=== PATIENT | male | born 1960 | race African-American/Black ===

== ENCOUNTER 2017-01-01 13:16 | Emergency (ER) | payer MEDICARE, OTHER ==
[2017-01-01 13:38] VITALS: BP 134/71
[2017-01-01 14:13] LABS: BASOPHILS % 0.3 (0.0-1.5); EOSINOPHILS % 2.3 % (0.0-6.8); MEAN CORPUSCULAR VOLUME 92.5 fl (80.0-100.0); MONOCYTES % 5.5 % (0.0-11.0); NEUTROPHILS # 3.4 # k/uL (1.4-7.7)
[2017-01-01 14:38] LABS: eGFR (African) > 60; eGFR (Non-African) > 60
[2017-01-01] MEDS ORDERED: METOPROLOL TARTRATE 50 MG TABLET PO ONE (18:20)
[2017-01-01] MEDS ORDERED: HALOPERIDOL LACTATE 5 MG/ML VIAL IM ONE ×2 (18:57→19:00)
[2017-01-01] MEDS ORDERED: LORazepam 1 MG TABLET PO ONE (20:30)
[2017-01-01] MEDS ORDERED: QUEtiapine FUMARATE 25 MG TABLET PO ONE (20:30)
[2017-01-01] MEDS ORDERED: traZODone HCL 50 MG TABLET ONE (20:39)
[2017-01-01] MEDS ORDERED: traZODone HCL 50 MG TABLET PO SCH (21:00)
--- NOTE | 2017-01-02 08:36 | ED Physician Documentation ---
Suicidal Attempt - HISTORIAN Historian: patient, other (caregiver) - HPI Chief Complaint: Psychological Disorder Onset: days ago (2 days) Intent: suicide Situational Problems: No Further Comments: yes (Patient has been exhibiting some suicidal thoughts and ideation/attempts. No precipitating factors noted. Yesterday patient tried to hang himself with his ties and belt. Patient became aggrivated and was making threatening jestors to the staff but did not do anything physical to the staff or other residents. Patient has told the staff today that he was going to try to kill himself. Patient tried to take a knife from the kitchen and threatened to stab himself. Patient states that he does not like the place where he is living because they do not treat him nice. He is distraught about his aunt who several years ago. This is bothering him a lot.) - Associated Symptoms Symptoms: frustrated Ingestion: wanted to "escape" Mechanism: other (see above) - ROS CONST: denies: fever, chills - PAST HX Psychiatric problems: prior suicide attempt, schizophrenia (schizoeffective disorder), other (mild MR, depression, antisocial personality disorder) Lung, Cardiac, DM: hypertension (lt estopia, moderate dysarthria, DJD, allergic rhinnitis, extrapyramidal syndrome) Surgical History: other (right tibial plateau fracture) Immunizations: UTD Allergies/Adverse Reactions: Allergies Allergy/AdvReac Type Severity Reaction Status Date / Time No Known Allergies Allergy Verified 01/01/17 13:19 Home Medications: Ambulatory Orders Medication Instructions Recorded Acetaminophen [Tylenol] 650 mg PO Q6 PRN 01/01/17 Aspirin [Dina] 81 mg PO DAILY 01/01/17 Divalproex Sodium [Depakote] 4 tab PO QDAY 01/01/17 Haloperidol Decanoate [Haloperidol 300 mg IM WEEKLY AT 0600 01/01/17 Decanoate 100] Hydrochlorothiazide [Hydrodiuril] 25 mg PO DAILY 01/01/17 LORazepam [Ativan] 0.5 mg PO BID 01/01/17 LORazepam [Ativan] 1 mg PO [id number] 01/01/17 Lisinopril [Zestril] 40 mg PO QDAY 01/01/17 Lorazepam [Ativan] 1 mg PO Q6 PRN 01/01/17 Metoprolol Tartrate [Lopressor] 100 mg PO BID 01/01/17 Nifedipine [Procardia] 90 mg PO QDAY 01/01/17 Quetiapine Fumarate [Seroquel] 300 mg PO HS 01/01/17 Sertraline HCl [Zoloft] 50 mg PO DAILY 01/01/17 Trihexyphenidyl HCl 1 mg PO BID 01/01/17 [Trihexyphenidyl HCl] traZODone HCL [Desyrel] 200 mg PO HS 01/01/17 - Social HX Smoking History: non-smoker Marital Status: single Drug Use: none - Family HX Family HX: denies: mental illness (unknown) - VITAL SIGNS Vital Signs: Vital Signs Temp Pulse Resp BP Pulse Ox 98.2 F 68 18 134/71 93 01/01/17 13:20 01/01/17 13:20 01/01/17 13:20 01/01/17 13:20 01/01/17 13:20 - REVIEWED ASSESSMENTS Nursing Assessment Reviewed: Yes Vitals Reviewed: Yes Progress - Results/Orders Results/Orders: 15:32 Patient is cooperative and pleasant at this time. Voices no complaints. Patient' s gaurdian has given consent for him to be transfered to a psychiatric facility. 18:57 Patient has become aggitated when disabilities caregiver has returned. ED Results Lab/Radiology - Lab Results Lab Results: Lab Results 01/01/17 01/01/17 14:10 14:10 WBC 5.20 K/ul K/ul (4.00-12.00) RBC 3.85 M/ul L M/ul (3.90-5.20) Hgb 11.9 g/dL L g/dL (12.0-18.0) Hct 35.6 % L % (37.0-53.0) MCV 92.5 fl fl (80.0-100.0) MCH 31.0 pg pg (28.0-34.0) MCHC 33.5 g/dL g/dL (30.0-36.0) RDW 14.9 % H % (11.3-14.3) Plt Count 200 K/mm3 K/mm3 (130-400) Neut % (Auto) 65.4 % % (39.0-79.0) Lymph % (Auto) 25.4 % % (16.0-50.0) [place] % (Auto) 5.5 % % (0.0-11.0) Eos % (Auto) 2.3 % % (0.0-6.8) Baso % (Auto) 0.3 (0.0-1.5) Neut # 3.4 # k/uL # k/uL (1.4-7.7) Lymph # 1.3 # k/uL # k/uL (0.6-4.0) [place] # 0.3 # k/uL # k/uL (0.0-0.9) Eos # 0.1 # k/uL # k/uL (0.0-0.6) Baso # 0.0 # k/uL # k/uL (0.0-0.5) Reactive Lymphs % 1.2 % % (0.0-5.0) Reactive Lymphs # 0.1 # k/uL # k/uL (0.0-0.8) Sodium 140 mmol/L mmol/L (136-145) Potassium 3.9 mmol/L mmol/L (3.5-5.0) Chloride 98 mmol/L mmol/L (98-110) Carbon Dioxide 34 mmol/L H mmol/L (20-32) BUN 14 mg/dL mg/dL (10-26) Creatinine 1.0 mg/dL mg/dL (0.4-1.5) Estimated Creat Clear 104 Est GFR ( Amer) > 60 (60 - ) Est GFR (Non-Af Amer) > 60 (60 - ) Glucose 99 mg/dL mg/dL (70-99) Calcium 9.2 mg/dL mg/dL (8.5-10.5) Total Bilirubin 0.3 mg/dL mg/dL (0.2-1.2) AST 15 U/L U/L (0-41) ALT 6 U/L U/L (0-45) Alkaline Phosphatase 84 U/L U/L (46-116) Total Protein 6.9 g/dL g/dL (6.0-8.5) Albumin 3.8 g/dL g/dL (3.0-5.5) - Orders Orders: ED Orders Category Date Time Status CBC/PLATELET/DIFF Routine Lab 01/01/17 14:10 Completed CMP Routine Lab 01/01/17 14:10 Completed URINALYSIS Routine Lab 01/01/17 Uncollected Haloperidol Lactate [Haldol] Med 01/01/17 18:57 Discontinued 5 mg IM .STK-MED ONE Haloperidol Lactate [Haldol] Med 01/01/17 19:00 Once 5 mg IM NOW ONE Metoprolol Tartrate [Lopressor] Med 01/01/17 18:20 Discontinued 100 mg PO NOW ONE Suicide Physical Exam - Physical Exam General Appearance: no acute distress, alert ENT: nml ENT inspection, pharynx nml Eyes: PERRL, EOM's intact, other (estropia) Mental Status: tearful, suicidal ideation, depressed affect / mood Suicide Attempts: admit Orientation: nml x3 (at baseline for patient) Cranial Nerves: CN's intact as tested Sensory, Motor: nml motor response Neck/Back: normal inspection Respiratory: no resp distress CVS: reg rate & rhythm Abdomen: non-tender Skin: warm/dry Extremities: non-tender Discharge Clincal Impression: Suicide Depression Qualifiers: Depression Type: major depressive disorder Major depression recurrence: single episode Active/Remission status: currently active Major depression episode severity: moderate Qualified Code(s): F32.1 - Major depressive disorder, single episode, moderate Referrals: Primary Doctor,No [Primary Care Provider] - 2 Days Home Medications: Ambulatory Orders Acetaminophen [Tylenol] 650 mg PO Q6 PRN 01/01/17 Aspirin [Dina] 81 mg PO DAILY 01/01/17 Divalproex Sodium [Depakote] 4 tab PO QDAY 01/01/17 Haloperidol Decanoate [Haloperidol Decanoate 100] 300 mg IM WEEKLY AT 0600 01/01 Hydrochlorothiazide [Hydrodiuril] 25 mg PO DAILY 01/01/17 LORazepam [Ativan] 0.5 mg PO BID 01/01/17 LORazepam [Ativan] 1 mg PO [id number] 01/01/17 Lisinopril [Zestril] 40 mg PO QDAY 01/01/17 Lorazepam [Ativan] 1 mg PO Q6 PRN 01/01/17 Metoprolol Tartrate [Lopressor] 100 mg PO BID 01/01/17 Nifedipine [Procardia] 90 mg PO QDAY 01/01/17 Quetiapine Fumarate [Seroquel] 300 mg PO HS 01/01/17 Sertraline HCl [Zoloft] 50 mg PO DAILY 01/01/17 Trihexyphenidyl HCl [Trihexyphenidyl HCl] 1 mg PO BID 01/01/17 traZODone HCL [Desyrel] 200 mg PO HS 01/01/17 Decision to Admit: [id number] Date of Decison to Admit: 01/01/17 Decision Time: 16:00
== END 2017-01-01 21:15 ==
LOC: ED 13:16
DX: T14.91 Suicide attempt (principal); F32.9 Major depressive disorder, single episode, unspecified
CPT/HCPCS: 80053; 85025; J1630; 96374; 96376; 99283; 99284

== ENCOUNTER 2017-02-05 17:11 | Emergency (ER) | payer MEDICARE, OTHER ==
--- NOTE | 2017-02-05 17:32 | ED Physician Documentation ---
Hand Injury - HISTORIAN Historian: patient - PAST HX Allergies/Adverse Reactions: Allergies Allergy/AdvReac Type Severity Reaction Status Date / Time No Known Allergies Allergy Verified 01/01/17 13:19 Home Medications: Ambulatory Orders Medication Instructions Recorded Acetaminophen [Tylenol] 650 mg PO Q6 PRN 01/01/17 Aspirin [Dina] 81 mg PO DAILY 01/01/17 Divalproex Sodium [Depakote] 4 tab PO QDAY 01/01/17 Haloperidol Decanoate [Haloperidol [address] [place] [address]/01/17 Decanoate 100] Hydrochlorothiazide [Hydrodiuril] 25 mg PO DAILY 01/01/17 LORazepam [Ativan] 0.5 mg PO BID 01/01/17 LORazepam [Ativan] 1 mg PO [id number] 01/01/17 Lisinopril [Zestril] 40 mg PO QDAY 01/01/17 Lorazepam [Ativan] 1 mg PO Q6 PRN 01/01/17 Metoprolol Tartrate [Lopressor] 100 mg PO BID 01/01/17 Nifedipine [Procardia] 90 mg PO QDAY 01/01/17 Quetiapine Fumarate [Seroquel] 300 mg PO HS 01/01/17 Sertraline HCl [Zoloft] 50 mg PO DAILY 01/01/17 Trihexyphenidyl HCl 1 mg PO BID 01/01/17 [Trihexyphenidyl HCl] traZODone HCL [Desyrel] 200 mg PO HS 01/01/17 - VITAL SIGNS Vital Signs: Vital Signs Temp Pulse Resp BP Pulse Ox 134/71 01/01/17 13:20 Discharge Referrals: Primary Doctor,No [Primary Care Provider] - 2 Days Home Medications: Ambulatory Orders Acetaminophen [Tylenol] 650 mg PO Q6 PRN 01/01/17 Aspirin [Dina] 81 mg PO DAILY 01/01/17 Divalproex Sodium [Depakote] 4 tab PO QDAY 01/01/17 Haloperidol Decanoate [Haloperidol Decanoate 100] 300 mg IM WEEKLY AT 0601/01 Hydrochlorothiazide [Hydrodiuril] 25 mg PO DAILY 01/01/17 LORazepam [Ativan] 0.5 mg PO BID 01/01/17 LORazepam [Ativan] 1 mg PO [id number] 01/01/17 Lisinopril [Zestril] 40 mg PO QDAY 01/01/17 Lorazepam [Ativan] 1 mg PO Q6 PRN 01/01/17 Metoprolol Tartrate [Lopressor] 100 mg PO BID 01/01/17 Nifedipine [Procardia] 90 mg PO QDAY 01/01/17 Quetiapine Fumarate [Seroquel] 300 mg PO HS 01/01/17 Sertraline HCl [Zoloft] 50 mg PO DAILY 01/01/17 Trihexyphenidyl HCl [Trihexyphenidyl HCl] 1 mg PO BID 01/01/17 traZODone HCL [Desyrel] 200 mg PO HS 01/01/17
[2017-02-05] MEDS ORDERED: DIPH,PERTUSS(ACELL),TET VAC/PF 0.5 ML DISP.SYRIN IM ONE (17:54)
[2017-02-05] MEDS: DIPH,PERTUSS(ACELL),TET VAC/PF 0.5 ML DISP.SYRIN IM SCH (17:55)
--- NOTE | 2017-02-05 18:22 | ED Physician Documentation ---
Head Injury - HISTORIAN Historian: patient - HPI Stated Complaint: Laceration Chief Complaint: Head Injury Onset: just prior to arrival Where: home Timing: still present Context: fall Severity: mild Loss of Consciousness: no loss of consciousness Further Comments: yes (Patient lost his balance and hit his head on a rwooden railing. Abrasion / laceration to the left eyebrow.) - ROS CONST: no problems CVS/RESP: none EYES/ENT: none. denies: problems with vision - PAST HX Past History: other (MR) Immunizations: other (unknown) Allergies/Adverse Reactions: Allergies Allergy/AdvReac Type Severity Reaction Status Date / Time No Known Allergies Allergy Verified 01/01/17 13:19 Home Medications: Ambulatory Orders Medication Instructions Recorded Acetaminophen [Tylenol] 650 mg PO Q6 PRN 01/01/17 Aspirin [Dina] 81 mg PO DAILY 01/01/17 Divalproex Sodium [Depakote] 4 tab PO QDAY 01/01/17 Haloperidol Decanoate [Haloperidol 300 mg IM WEEKLY AT 0600 01/01/17 Decanoate 100] Hydrochlorothiazide [Hydrodiuril] 25 mg PO DAILY 01/01/17 LORazepam [Ativan] 0.5 mg PO BID 01/01/17 LORazepam [Ativan] 1 mg PO [id number] 01/01/17 Lisinopril [Zestril] 40 mg PO QDAY 01/01/17 Lorazepam [Ativan] 1 mg PO Q6 PRN 01/01/17 Metoprolol Tartrate [Lopressor] 100 mg PO BID 01/01/17 Nifedipine [Procardia] 90 mg PO QDAY 01/01/17 Quetiapine Fumarate [Seroquel] 300 mg PO HS 01/01/17 Sertraline HCl [Zoloft] 50 mg PO DAILY 01/01/17 Trihexyphenidyl HCl 1 mg PO BID 01/01/17 [Trihexyphenidyl HCl] traZODone HCL [Desyrel] 200 mg PO HS 01/01/17 - SOCIAL HX Smoking History: non-smoker Alcohol Use: none Drug Use: none - FAMILY HX Family History: no significant history - VITAL SIGNS Vital Signs: Vital Signs Temp Pulse Resp BP Pulse Ox 98 F 72 18 142/58 99 02/05/17 17:15 02/05/17 18:28 02/05/17 18:28 02/05/17 18:28 02/05/17 18:28 - REVIEWED ASSESSMENTS Nursing Assessment Reviewed: Yes Vitals Reviewed: Yes Procedures Wound Location: head Wound Length: 2.8 cm Wound's Depth, Shape: superficial, linear Wound Explored: clean Betadine Prep?: No (tianna-hex) Wound Debrided: none Wound Repaired With: Dermabond ED Results Lab/Radiology - Orders Orders: ED Orders Category Date Time Status CT ORBIT W/O CONTRAST Routine Exams 02/05/17 Completed Diph,Pertuss(Acell),Tet Vac/Pf [Adacel] Med 02/05/17 17:54 Discontinued 0.5 ml IM .STK-MED ONE Diph,Pertuss(Acell),Tet Vac/Pf [Adacel] Med 02/05/17 18:00 Discontinued 0.5 ml IM 1T Head Injury Physical Exam - Physical Exam General Appearance: no acute distress, alert Head: trauma (mild swelling and ecchymosis to the left eye brow. adrasion type laceration about 2.8cm.) Neck: non-tender, painless ROM, trachea midline Nexus Criteria: Nexus criteria neg Eyes: TJ, lids & conjunct. nml. No: EOM palsy, EOM entrapment ENT: nml external inspection, pharynx nml Neuro: alert, oriented x3 (at baseline), cooperative. No: confused Cranial: nml as tested Cerebellar: nml as tested Sensorimotor: motor nml Resp/CVS: chest non-tender, breath sounds nml. No: wheezes, rales, rhonchi Skin: warm/dry - [place] Coma Score Coma Scale Eye Opening: Spontaneous Coma Scale Verbal: Oriented Coma Scale Motor: Obeys Commands Discharge Clincal Impression: Laceration of forehead without complication Qualifiers: Encounter type: initial encounter Qualified Code(s): S01.81XA - Laceration without foreign body of other part of head, initial encounter Referrals: Primary Doctor,No [REFERRING] - 2 Days Additional Instructions: Watch for any signs of infection to the laceration site, redness, swelling, purulent drainage. Follow instruction sheet for head. Home Medications: Ambulatory Orders Acetaminophen [Tylenol] 650 mg PO Q6 PRN 01/01/17 Aspirin [Dina] 81 mg PO DAILY 01/01/17 Divalproex Sodium [Depakote] 4 tab PO QDAY 01/01/17 Haloperidol Decanoate [Haloperidol Decanoate 100] 300 mg IM WEEKLY AT 0600 01/01 Hydrochlorothiazide [Hydrodiuril] 25 mg PO DAILY 01/01/17 LORazepam [Ativan] 0.5 mg PO BID 01/01/17 LORazepam [Ativan] 1 mg PO [id number] 01/01/17 Lisinopril [Zestril] 40 mg PO QDAY 01/01/17 Lorazepam [Ativan] 1 mg PO Q6 PRN 01/01/17 Metoprolol Tartrate [Lopressor] 100 mg PO BID 01/01/17 Nifedipine [Procardia] 90 mg PO QDAY 01/01/17 Quetiapine Fumarate [Seroquel] 300 mg PO HS 01/01/17 Sertraline HCl [Zoloft] 50 mg PO DAILY 01/01/17 Trihexyphenidyl HCl [Trihexyphenidyl HCl] 1 mg PO BID 01/01/17 traZODone HCL [Desyrel] 200 mg PO HS 01/01/17 Condition: Stable Disposition: 01 HOME, SELF-CARE Decision to Admit: NO Date of Decison to Admit: 02/05/17 Decision Time: 18:23
--- NOTE | 2017-02-05 18:23 | Diagnostic Imaging Report ---
[facility] [id number] [facility] [address] [place], [place]. [address] Report Submission Date: Feb 05, 2017 6:10:53 PM CDT Patient Study Name: STONEY SALDANA Date: Feb 05, 2017 5:47:14 PM CDT Modality Type: CT\SR Gender: M Description: CT ORBIT W/O CONTRAST : 58 Institution: [facility] Physician: KATHIE FLOREZ - ER Examination: CT orbits History: Trauma/Laceration Comparison exams: None provided Technique: Axial imaging with sagittal and coronal reconstruction Findings: Medial and inferior orbital diaz are intact. Anterior and posterior maxillary diaz are also intact. Zygomatic arches without fracture. No air fluid levels within the sinuses. Mild mucous thickening. Significant left periorbital soft tissue swelling. No evidence for fluid collection. Remaining visualized osseous structures and soft tissue structures are without irregularity. Impression: Significant left periorbital soft tissue swelling without obvious fluid collection/abscess by exam sensitivity. Correlate with reported history of trauma No orbital or maxillary bone fractures Electronically signed on Feb 05, 2017 6:10:53 PM CDT by: Fitz ENGLAND
[2017-02-05 18:45] VITALS: BP 142/58
== END 2017-02-05 18:28 | disposition home or self-care (01) ==
LOC: ED 17:11
DX: S01.81XA Laceration without foreign body of other part of head, initial encounter (principal); X58.XXXA Exposure to other specified factors, initial encounter; Y93.9 Activity, unspecified; Y99.9 Unspecified external cause status
CPT/HCPCS: 12002; 70480; 90471; 90715; 99283

== ENCOUNTER 2017-12-18 14:40 | Emergency (ER) | payer MEDICARE, OTHER ==
--- NOTE | 2017-12-18 15:21 | ED Physician Documentation ---
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 Pt had been aggressive in years past, but this behavior had been well-controlled on medications until about 2 or 3 weeks ago when pt began to become more physically aggressive. Pt was admitted to [facility] for a week, where he had his medications adjusted and was d/c'd back to [facility] on 12/12/17. Today pt became angry over an incident involving his telephone not working. He became aggressive toward staff and then ran out of the home onto a busy street, apparently to try to injure himself by getting in front of an oncoming car. Pt states that, yes, he would have killed someone if the situation had gotten any worse. Asked how he would do that he said he would strangle them. laboratory animal caretaker states that pt was on much higher doses of haldol during his recent in-patient stay than he was sent home on. Pt is taking new doses of Seroquel, Divalproex, and Haldol, both po and long-acting IM Haldol.) - ROS CONST: no problems EYES/ENT: none CVS/RESP: none GI/: none MS/SKIN/LYMPH: none NEURO/PSYCH: other (anger issues (psych illness)) - PAST HX Past History: hypertension, other (schizoaffective d/o, anti-social personality d/o, mild MR, GERD, iron deficiency) - SOCIAL HX Smoking History: cigarettes - FAMILY HX Family History: No - VITAL SIGNS Vital Signs: Vital Signs Temp Pulse Resp BP Pulse Ox 98.2 F 74 14 160/76 92 12/18/17 14:40 12/18/17 14:40 12/18/17 14:40 12/18/17 14:40 12/18/17 14:40 - REVIEWED ASSESSMENTS Nursing Assessment Reviewed: Yes Vitals Reviewed: Yes <Amari Tapia Last Filed: 12/18/17 18:52> - VITAL SIGNS Vital Signs: Vital Signs Temp Pulse Resp BP Pulse Ox 98.2 F 74 14 160/76 92 12/18/17 14:40 12/18/17 14:40 12/18/17 14:40 12/18/17 14:40 12/18/17 14:40 <ANA ZEPEDA - Last Filed: 12/18/17 21:20> - PAST HX Allergies/Adverse Reactions: Allergies Allergy/AdvReac Type Severity Reaction Status Date / Time No Known Allergies Allergy Verified 12/18/17 15:05 Home Medications: Ambulatory Orders Medication Instructions Recorded Aspirin [Dina] 81 mg PO DAILY 01/01/17 Hydrochlorothiazide [Hydrodiuril] 25 mg PO DAILY 01/01/17 Lisinopril [Zestril] 40 mg PO QDAY 01/01/17 Metoprolol Tartrate [Lopressor] 100 mg PO BID 01/01/17 Quetiapine Fumarate [Seroquel] 150 mg PO HS 01/01/17 Trihexyphenidyl HCl 1 mg PO BID 01/01/17 [Trihexyphenidyl HCl] Clonidine [Clonidine] 0.3 mg PO WEEKLY AT 0600 12/18/17 Divalproex Sodium [Divalproex 1,500 mg PO HS 12/18/17 Sodium ER] Famotidine [Pepcid] 20 mg PO BID 12/18/17 Ferrous Sulfate 325 mg PO BID 12/18/17 Fluticasone Propionate [24 Hour 1 spray INH BID 12/18/17 Allergy] Haloperidol 5 mg PO Q6 PRN 12/18/17 Haloperidol Decanoate [Haldol] 200 mg IJ DIRECTED 12/18/17 Levothyroxine Sodium 50 mcg PO AM 12/18/17 Mirtazapine [Mirtazapine] 30 mg PO HS 12/18/17 Pnv No.121/Iron/Folic Acid 1 tab PO D 12/18/17 [ Multivitamin Tablet] Quetiapine Fumarate [Seroquel] 400 mg PO D 12/18/17 Trazodone HCl [Desyrel] 100 mg PO HS 12/18/17 amLODIPine BESYLATE [Norvasc] 10 mg PO D 12/18/17 Progress - Progress Progress: care transferred to Ana Zep[facility] at 1900. - EKG/XRAY/CT EKG: NSR (HR=77; possible LVH by voltage) <Zygiel,Amari D - Last Filed: 12/18/17 18:52> - Progress Progress: 2118, accepted for transfer to [facility] facility per Dr. Blackwell. <ANA ZEPEDA - Last Filed: 12/18/17 21:20> ED Results Lab/Radiology - Lab Results Lab Results: Lab Results 12/18/17 12/18/17 16:05 16:05 WBC 5.50 K/ul K/ul (4.00-12.00) RBC 4.17 M/ul M/ul (3.90-5.20) Hgb 12.4 g/dL g/dL (12.0-18.0) Hct 38.4 % % (37.0-53.0) MCV 92.2 fl fl (80.0-100.0) MCH 29.8 pg pg (28.0-34.0) MCHC 32.3 g/dL g/dL (30.0-36.0) RDW 15.5 % H % (11.3-14.3) Plt Count 368 K/mm3 K/mm3 (130-400) Neut % (Auto) 65.7 % % (39.0-79.0) Lymph % (Auto) 25.0 % % (16.0-50.0) [place] % (Auto) 4.9 % % (0.0-11.0) Eos % (Auto) 2.8 % % (0.0-6.8) Baso % (Auto) 0.3 (0.0-1.5) Neut # (Auto) 3.6 # k/uL # k/uL (1.4-7.7) Lymph # (Auto) 1.4 # k/uL # k/uL (0.6-4.0) [place] # (Auto) 0.3 # k/uL # k/uL (0.0-0.9) Eos # (Auto) 0.2 # k/uL # k/uL (0.0-0.6) Baso # (Auto) 0.0 # k/uL # k/uL (0.0-0.5) Reactive Lymphs % 1.4 % % (0.0-5.0) Reactive Lymphs # 0.1 # k/uL # k/uL (0.0-0.8) Sodium 143 mmol/L mmol/L (136-145) Potassium 4.3 mmol/L mmol/L (3.5-5.1) Chloride 101 mmol/L mmol/L (98-107) Carbon Dioxide 32 mmol/L H mmol/L (22-30) BUN 16 mg/dL mg/dL (9-20) Creatinine 1.40 mg/dL H mg/dL (0.66-1.25) Estimated Creat Clear 82 Est GFR ( Amer) > 60 (60 - ) Est GFR (Non-Af Amer) 55 L (60 - ) Glucose 99 mg/dL mg/dL (74-106) Calcium 9.5 mg/dL mg/dL (8.4-10.2) Total Bilirubin < 0.1 mg/dL L mg/dL (0.2-1.3) AST 32 U/L U/L (15-46) ALT 27 U/L U/L (13-69) Alkaline Phosphatase 111 U/L U/L (38-126) Total Protein 9.7 g/dL H g/dL (6.3-8.2) Albumin 4.7 g/dL g/dL (3.5-5.0) Ethyl Alcohol < 10.0 mg/dL mg/dL (0.0-10.0) - Orders Orders: ED Orders Category Date Time Status ALCOHOL MEDICAL USE ONLY Routine Lab 12/18/17 16:05 Completed CBC/PLATELET/DIFF Routine Lab 12/18/17 16:05 Completed CMP Routine Lab 12/18/17 16:05 Completed DRUG SCREEN URINE MEDICAL ONLY Routine Lab 12/18/17 Ordered UA [URINALYSIS] Routine Lab 12/18/17 Ordered Dextrose 5 % and 0.9 % NaCl [D5ns] 1,000 ml Med 12/18/17 20:00 Discontinued IV Q10H Haloperidol Lactate [Haldol] Med 12/18/17 19:06 Discontinued 10 mg IM .STK-MED ONE Haloperidol Lactate [Haldol] Med 12/18/17 19:05 Discontinued 10 mg IM NOW ONE Haloperidol Lactate [Haldol] Med 12/18/17 19:01 Discontinued 5 mg IM NOW ONE EKG WITH COMPARISON Stat Ther 12/18/17 Ordered <ANA ZEPEDA - Last Filed: 05/30/18 21:20> General Adult Physical Exam - PHYSICAL EXAM GENERAL APPEARANCE: mild distress EENT: pharynx normal NECK: normal inspection, supple RESPIRATORY: no resp distress, chest non-tender, breath sounds normal CVS: reg rate & rhythm, heart sounds normal ABDOMEN: soft, normal bowel sounds BACK: normal inspection, no CVA tenderness SKIN: warm/dry, normal color EXTREMITIES: non-tender, normal range of motion, no edema NEURO: motor nml, sensation nml, other (hx mild MR, schizoaffective d/o) <Amari Tapia - Last Filed: 12/18/17 18:52> Discharge <Amari Tapia - Last Filed: 12/18/17 18:52> Decision to Admit: NO Decision Time: 21:19 <ANA ZEPEDA - Last Filed: 12/18/17 21:20> Clincal Impression: schizoaffective d/o, anger issues, aggressive behavior Referrals: Joby Gregorio [Primary Care Provider] - Condition: Fair Disposition: XF [facility]
[2017-12-18 16:10] LABS: BASOPHILS % 0.3 (0.0-1.5); EOSINOPHILS % 2.8 % (0.0-6.8); MEAN CORPUSCULAR HEMOGLOBIN 29.8 pg (28.0-34.0); MEAN CORPUSCULAR VOLUME 92.2 fl (80.0-100.0); MONOCYTES % 4.9 % (0.0-11.0); NEUTROPHILS # 3.6 # k/uL (1.4-7.7)
[2017-12-18 16:25] LABS: eGFR (African) > 60; eGFR (Non-African) 55
[2017-12-18] MEDS ORDERED: HALOPERIDOL LACTATE 5 MG/ML VIAL IM ONE ×3 (19:01→19:06)
[2017-12-18] MEDS ORDERED: DEXTROSE 5 % AND 0.9 % NACL 1,000 ML IV SCH (20:00)
[2017-12-18 21:43] VITALS: BP 158/72
[2017-12-19 06:16] LABS: CANNABINOIDS NEGATIVE ng/mL (< 50); METHYLENEDIOXYMETHAMPHETAMINE NEGATIVE ng/mL (<500)
[2017-12-19 07:11] LABS: APPEARANCE,URINE CLEAR (CLEAR); COLOR,URINE YELLOW (YELLOW); OCCULT BLOOD,URINE NEGATIVE (NEGATIVE); PH URINE 6.5 (5.0 - 8.0); UROBILINOGEN URINE 0.2 Eu (0.2-1.0)
== END 2017-12-18 21:30 | disposition short-term general hospital (02) ==
LOC: ED 14:40
DX: F20.9 Schizophrenia, unspecified (principal); R45.4 Irritability and anger; F98.9 Unspecified behavioral and emotional disorders with onset usually occurring in childhood and adolescence
CPT/HCPCS: 80053; 85025; G0480; J1630; 80320; 80377; 81002; 96372; 99285; G0481